=== PATIENT | male | born 1995 | race Caucasian/White ===

== ENCOUNTER 2017-07-04 14:37 | Emergency (ER) ==
[2017-07-04 14:42] VITALS: BP 146/83; TEMP 97.5; BMI 31.7
[2017-07-04] MEDS ORDERED: DECADRON 4 MG/ML SDV IM STA (14:49)
[2017-07-04] MEDS ORDERED: BENADRYL IM STA (14:49)
--- NOTE | 2017-07-04 14:53 | ED.PDOC ---
General ED Provider: Dr. LESLIE CURTIS Chief Complaint: Rash Stated Complaint: rash poison nadya Time Seen by Physician: 14:40 ( cleaning weeds exposed to it ) Mode of Arrival: Walk-In Information Source: Patient Exam Limitations: No limitations Primary [facility] Nursing and Triage Documentation Reviewed and Agree: Yes Skin Complaint Exam - Skin Rash/Itching Complaint/Exam Onset/Duration: 1 day Symptoms Are: Still present Initial Severity: Mild Current Severity: Mild Potential Exposures: Reports: Plants Aggravating: Reports: None Alleviating: Reports: None Associated Signs and Symptoms: Denies: Difficulty breathing, Fever, Chills Skin Findings: Present: Maculae, Vesicles Differential Diagnoses: Contact Dermatitis, Poison Nadya/[place] Review of Systems - Review Of Systems Constitutional: Reports: No symptoms Eyes: Reports: No symptoms Ears, Nose, Mouth, Throat: Reports: No symptoms Respiratory: Reports: No symptoms Cardiac: Reports: No symptoms GI: Reports: No symptoms : Reports: No symptoms Musculoskeletal: Reports: No symptoms Skin: Reports: Rash (face arms, legs) Neurological: Reports: No symptoms Endocrine: Reports: No symptoms Hematologic/Lymphatic: Reports: No symptoms All Other Systems: Reviewed and Negative Past Medical History - Past Medical History Previously Healthy: Yes Endocrine: Reports: None Cardiovascular: Reports: None Respiratory: Reports: None Hematological: Reports: None Gastrointestinal: Reports: None Genitourinary: Reports: None Neuro/Psych: Reports: None Musculoskeletal: Reports: None Cancer: Reports: None - Surgical History General Surgical History: Reports: Other (surgery for the bowel obstruction at ) - Family History Family History: Reports: None - Social History Smoking Status: Never smoker Hx Substance Use: No Alcohol Screening: None Physical Exam - Physical Exam Appearance: Well-appearing, No pain distress, Well-nourished Eyes: BROOKE, EOMI, Conjunctiva clear ENT: Ears normal, Nose normal, Oropharynx normal Respiratory: Airway patent, Breath sounds clear, Breath sounds equal, Respirations nonlabored Cardiovascular: RRR, Pulses normal, No rub, No murmur GI/: Soft, Nontender, No masses, Bowel sounds normal, No Organomegaly Musculoskeletal: Normal strength, ROM intact, No edema, No calf tenderness Skin: Warm, Dry (rash ext arms , legs see photo) Neurological: Sensation intact, Motor intact, Reflexes intact, Cranial nerves intact, Alert, Oriented Psychiatric: Affect appropriate, Mood appropriate Critical Care Note - Critical Care Note Total Time (mins): 0 Course - Course Orders, Labs, Meds: Orders Category Date Time Status Dexamethasone 4 mg/ml Inj [Decadron 4 mg/ml Sdv] MEDS 07/04/17 14:49 Stat 4 mg IM ONCE STA Diphenhydramine Inj [Benadryl] MEDS 07/04/17 14:49 Stat 50 mg IM ONCE STA Medications Discontinued Medications Generic Name Dose Route Start Last Admin Trade Name Wayne PRN Reason Stop Dose Admin Dexamethasone Sodium Phosphate 4 mg 07/04/17 14:49 Decadron 4 Mg/Ml Sdv IM 07/04/17 14:50 ONCE STA Diphenhydramine HCl 50 mg 07/04/17 14:49 Benadryl IM 07/04/17 14:50 ONCE STA Vital Signs: Temp Pulse Resp BP Pulse Ox 07/04/17 14:37 97.5 F L 77 18 146/83 H 98 Departure - Departure Time of Disposition: 14:53 Disposition: HOME SELF-CARE Discharge Problem: Pruritic rash, Contact dermatitis due to poison nadya Instructions: Poison Nadya (ED) Condition: Good Pt referred to PMD for follow-up: Yes Additional Instructions: Please call your Family Physician as soon as possible to schedule a follow-up appointment. Allergies/Adverse Reactions: Allergies hydrocortisone Adverse Reaction (Verified 07/04/17 14:41) Home Medications: Ambulatory Orders 1 [No Reported Medications] 07/04/17
== END 2017-07-04 15:13 | disposition home or self-care (01) ==
LOC: ED 14:37
DX: L23.7 Allergic contact dermatitis due to plants, except food (principal)
CPT/HCPCS: 96372; 99282

== ENCOUNTER 2018-01-08 21:54 | Emergency (ER) ==
[2018-01-08 22:07] VITALS: BP 146/61; TEMP 98.3; BMI 31.6
[2018-01-08] MEDS ORDERED: MOTRIN PO STA (22:20)
[2018-01-08] MEDS ORDERED: BACTRIM DS 800/160 MG PO STA (22:20)
--- NOTE | 2018-01-08 22:30 | ED.PDOC ---
General ED Provider: Dr. DEVONTE TIRADO Chief Complaint: Non-specific Complaint Stated Complaint: Patient is a 22 year old male who states he has been having drainage and pain on the lower back for many years. He states he has not seen a doctor for it. Also complains of a recent right wrist abscess and swelling. Time Seen by Physician: 22:22 Mode of Arrival: Walk-In Information Source: Patient Exam Limitations: No limitations Nursing and Triage Documentation Reviewed and Agree: Yes Reviewed sepsis parameters & appropriate labs ordered?: Yes System Inflammatory Response Syndrome: Not Applicable Sepsis Protocol: For patient's 13 years and over: Temp is 96.8 and below OR 101 and greater Pulse >90 BPM Resp >20/minute Acutely Altered Mental Status Are patient's symptoms suggestive of a new infection, such as: -Pneumonia -Skin, Soft Tissue -Endocarditis -UTI -Bone, Joint Infection -Implantable Device -Acute Abdominal Infection -Wound Infection -Meningitis -Blood Stream Catheter Infection -Unknown System Inflammatory Response Syndrome: Not Applicable Skin Complaint Exam - Skin/Soft Tissue Complaint/Exam Onset/Duration: 3 days Symptoms Are: Still present Timing: Constant Location: right lateral wrist area Character: Reports: Redness, Swelling, Raised, Painful Aggravating: Reports: Touch Alleviating: Reports: None Associated Signs and Symptoms: Reports: Drainage, Tenderness, Red streaks. Denies: Fever, Chills, Itching, Bruising, Joint swelling Recent Exposure to Others w/Similar Symptoms: No Skin Findings: Present: Fluctuant mass (on the right wrist.), Other (Pilonidal cyst for many years) Differential Diagnoses: Abscess, Cellulitis, Infection, Lymphangitis Review of Systems - Review Of Systems Constitutional: Reports: No symptoms Eyes: Reports: No symptoms Ears, Nose, Mouth, Throat: Reports: No symptoms Respiratory: Reports: No symptoms Cardiac: Reports: No symptoms GI: Reports: No symptoms : Reports: No symptoms Musculoskeletal: Reports: No symptoms Skin: Reports: Lesions (Lower back area and) Neurological: Reports: No symptoms Endocrine: Reports: No symptoms Hematologic/Lymphatic: Reports: No symptoms All Other Systems: Reviewed and Negative Past Medical History - Past Medical History Previously Healthy: Yes Endocrine: Reports: None Cardiovascular: Reports: None Respiratory: Reports: None Hematological: Reports: None Gastrointestinal: Reports: None Genitourinary: Reports: None Neuro/Psych: Reports: None Musculoskeletal: Reports: None Cancer: Reports: None - Surgical History General Surgical History: Reports: Other (surgery for the bowel obstruction at ) - Family History Family History: Reports: None - Social History Smoking Status: Never smoker Hx Substance Use: No Alcohol Screening: Occasionally - Immunizations Tetanus Shot up to Date: Yes Physical Exam - Physical Exam Appearance: Ill-appearing, Obese Ill-appearing: Mild Pain Distress: Moderate Neck: Supple Cardiovascular: RRR, Pulses normal, No rub, No murmur GI/: Soft, Nontender Skin: Warm, Dry Psychiatric: Anxious Procedures - Incision and Drainage Site: right wrist Instrument Used: Needle Lidocaine Used: No Type of Drainage: Present: Pus, Blood Irrigated: Yes Progress: Tolerated well. Critical Care Note - Critical Care Note Total Time (mins): 0 Course - Course Orders, Labs, Meds: Orders Category Date Time Status CULTURE WOUND [WOUND CULTURE] Stat LAB 01/08/18 22:15 Received Ibuprofen [Motrin] MEDS 01/08/18 22:20 Discontinued 600 mg PO ONCE STA Sulfamethoxazole/Trimethoprim [Bactrim Ds 800/160 mg] MEDS 01/08/18 22:20 Discontinued 1 tab PO ONCE STA Medications Discontinued Medications Generic Name Dose Route Start Last Admin Trade Name Freq PRN Reason Stop Dose Admin Ibuprofen 600 mg 01/08/18 22:20 01/08/18 22:27 Motrin PO 01/08/18 22:21 600 mg ONCE STA Administration Trimethoprim/Sulfamethoxazole 1 tab 01/08/18 22:20 01/08/18 22:25 Bactrim Ds 800/160 Mg PO 01/08/18 22:21 1 tab ONCE STA Administration Vital Signs: Temp Pulse Resp BP Pulse Ox 01/08/18 21:55 98.3 F 85 16 146/61 H 98 Departure - Departure Time of Disposition: 22:31 Disposition: HOME SELF-CARE Discharge Problem: Abscess of wrist, Pilonidal cyst with abscess Instructions: Pilonidal Cyst (ED), Abscess Incision and Drainage (GEN) Condition: Stable Pt referred to PMD for follow-up: Yes IPMP verified?: No Additional Instructions: Use warm compress to abscess areas Must follow up with the Clinic to be referred to a surgeon for excision of pilonidal cyst which you have had for years. Prescriptions: Ibuprofen [Motrin] 600 mg PO Q6H PRN #30 tablet PRN Reason: Analgesia Sulfamethoxazole/Trimethoprim [Bactrim Ds Tablet] 1 each PO BID #20 tablet Allergies/Adverse Reactions: Allergies No Known Allergies Allergy (Verified 01/08/18 21:57) Home Medications: Ambulatory Orders Ibuprofen [Motrin] 600 mg PO Q6H PRN #30 tablet 01/08/18 Sulfamethoxazole/Trimethoprim [Bactrim Ds Tablet] 1 each PO BID #20 tablet 01/08 Disposition Discussed With: Patient, Family
== END 2018-01-08 22:43 | disposition home or self-care (01) ==
LOC: ED 21:54
DX: L02.413 Cutaneous abscess of right upper limb (principal); L05.01 Pilonidal cyst with abscess
CPT/HCPCS: 87070; 87186; 99283